=== PATIENT | male | born 1985 | race African-American/Black ===

== ENCOUNTER 2016-10-02 03:03 | Emergency (ER) | payer MEDICAID ==
[~2016-10-02] VITALS: Ht 185.4 cm; Wt 77.1 kg
[2016-10-02] MEDS ORDERED: AMOXICILLIN500 MG ORAL (03:24)
[2016-10-02 03:38] VITALS: BP 133/74
[2016-10-02 03:39] VITALS: BP 133/74
--- NOTE | 2016-10-02 03:52 | Emergency Room Report ---
History of Present Illness General Chief Complaint: Fever Source: Patient Present Illness HPI 31-year-old male presents to ED for evaluation. Patient states the last 2 days he's had a fever. Patient went to [place] yesterday afternoon for evaluation. Has blood work and IV fluids. Patient was told he had a viral infection was discharged on ibuprofen. Patient is here because he continues to have a fever. Complaining of sore throat. Denies cough. Denies bowel pain nausea or vomiting. Denies sick contacts or recent travel. No other aggravating relieving factors. Denies any other associated symptoms Allergies: Coded Allergies: No Known Allergies (Unverified , 10/02/16) Patient History Past Medical History: none Past Surgical History: none Pertinent Family History: none Social History: Denies: alcohol use, drug use, smoking Immunizations: UTD Reviewed Nursing Documentation: PMH: Agreed, PSxH: Agreed Nursing Documentation-PMH Past Medical History: No Stated History Review of Systems All Other Systems: negative except mentioned in HPI Physical Exam Vital Signs Date Time Temp Pulse Resp B/P Pulse Ox O2 Delivery O2 Flow Rate FiO2 10/02/16 03:08 99.1 115 20 147/79 90 Room Air Sp02 EP Interpretation: reviewed, normal General Appearance: no apparent distress, alert, GCS 15, non-toxic Head: normocephalic, atraumatic Eyes: bilateral eye PERRL, bilateral eye normal inspection ENT: hearing grossly normal, no angioedema, normal voice, pharyngeal erythema, tonsillar exudate Neck: full range of motion, supple/symm/no masses Respiratory: chest non-tender, lungs clear, normal breath sounds, speaking full sentences Cardiovascular #1: regular rate, rhythm, no edema Gastrointestinal: normal inspection Rectal: deferred Genitourinary: no CVA tenderness Musculoskeletal: normal inspection Neurologic: alert, oriented x3, responsive, motor strength/tone normal, sensory intact, speech normal Psychiatric: normal inspection Skin: normal inspection Lymphatic: normal inspection Medical Decision Making Diagnostic Impression: Primary Impression: Pharyngitis Qualified Codes: J02.9 - Acute pharyngitis, unspecified ER Course Hospital Course 31-year-old male presents to ED complaining of sore throat + fever Differential diagnoses include: URI, pharyngitis, otitis media Clinical course Patient placed on stretcher. After initial history, physical exam reveals a male in no acute distress. Bilateral TM unremarkable. There is pharyngeal erythema w/ tonsillar exudates. No lymphadenopathy. Clinical findings consistent with pharyngitis. Reassurance given Diagnosis - pharyngitis Stable and discharged home with prescriptions for amoxicillin. Instructed to followup with PMD. return to ED if symptoms recur or worsen Last Vital Signs Date Time Temp Pulse Resp B/P Pulse Ox O2 Delivery O2 Flow Rate FiO2 10/02/16 03:39 99.1 88 20 133/74 95 Room Air Status: improved Disposition: HOME, SELF-CARE Condition: Stable Scripts Amoxicillin* (AMOXIL*) 500 Mg Capsule 500 MG ORAL THREE TIMES A DAY, #21 CAP Prov: KIRT CARRINGTON M.D. 10/02/16 Patient Instructions: Pharyngitis, [id number] KIRT CARRINGTON M.D. Oct 02, 2016 03:52
== END 2016-10-02 03:39 | disposition home or self-care (01) ==
LOC: EMR 03:22
DX: J02.9 Acute pharyngitis, unspecified (principal)
CPT/HCPCS: 99283

== ENCOUNTER 2016-10-17 17:10 | Emergency (ER) | payer MEDICAID ==
[~2016-10-17] VITALS: Ht 182.9 cm; Wt 77.1 kg
[~2016-10-17 17:10] MED LIST: AMOXICILLIN500 MG ORAL
[2016-10-17] MEDS ORDERED: AMOXICILLIN500 MG ORAL (18:00)
[2016-10-17] MEDS ORDERED: TESSALON PERLE100 MG ORAL (18:00)
[2016-10-17 18:04] VITALS: BP 128/72
[2016-10-17 18:13] VITALS: BP 128/72
--- NOTE | 2016-10-17 23:01 | Emergency Room Report ---
History of Present Illness General Chief Complaint: Sore Throat Source: Patient Present Illness HPI The pt is a 31 yo M presenting for sore throat and cough for the past month. The patient was seen in this ED recently for the same symptoms but he lost his prescription and was unable to take any antibiotics. Pain is described as an 8/ 10 dull ache to the back of the throat and does not radiate. Pain worse with swallowing. Produces a green to yellow sputum. He denies any other symptoms including N, V, rash, CP, SOB Allergies: Coded Allergies: No Known Allergies (Unverified , 10/02/16) Patient History Past Medical History: see triage record Pertinent Family History: none Reviewed Nursing Documentation: PMH: Agreed, PSxH: Agreed Nursing Documentation-PMH Past Medical History: No History, Except For History Of Psychiatric Problem: Yes Review of Systems All Other Systems: negative except mentioned in HPI Physical Exam Vital Signs Date Time Temp Pulse Resp B/P Pulse Ox O2 Delivery O2 Flow Rate FiO2 10/17/16 17:32 98.2 115 20 128/72 99 Room Air Sp02 EP Interpretation: reviewed, normal General Appearance: no apparent distress, alert, GCS 15, non-toxic Head: normocephalic, atraumatic Eyes: bilateral eye PERRL, bilateral eye normal inspection ENT: TMs + canals normal, uvula midline, tonsillar swelling, pharyngeal erythema Neck: full range of motion, supple/symm/no masses Respiratory: chest non-tender, lungs clear, normal breath sounds, no wheezing, speaking full sentences Cardiovascular #1: regular rate, rhythm, no edema Musculoskeletal: back normal, gait/station normal, normal range of motion, non- tender Neurologic: alert, oriented x3, responsive, motor strength/tone normal, sensory intact, normal gait, speech normal Psychiatric: judgement/insight normal, memory normal, mood/affect normal, no suicidal/homicidal ideation Skin: normal color, no rash, warm/dry, well hydrated Lymphatic: adenopathy - cervical Medical Decision Making PA Attestation Dr. Joshi is my supervising physician. Patient management was discussed with my supervising physician Diagnostic Impression: Primary Impression: Pharyngitis Qualified Codes: J02.9 - Acute pharyngitis, unspecified ER Course The pt is a 31 yo M presenting for sore throat and cough for the past month Differential diagnosis include but not limited to pharyngitis, sinusitis, AOM, bronchitis, PNA Physical exam: Afebrile. No apparent distress HEENT exam: There is bilateral tonsillar edema, erythema. Uvula midline. Moist mucous membranes. There is bilateral cervical lymphadenopathy. Lungs are clear to auscultation bilaterally Skin is warm and dry. No rash The patient will be discharged home with a prescription for amoxicillin and is given ER precautions. Patient will followup with primary care Last Vital Signs Date Time Temp Pulse Resp B/P Pulse Ox O2 Delivery O2 Flow Rate FiO2 10/17/16 18:13 98.2 20 128/72 99 Room Air 10/17/16 17:32 115 Status: improved Disposition: HOME, SELF-CARE Condition: Improved Scripts Benzonatate* (TESSALON PERLE*) 100 Mg Capsule 100 MG ORAL THREE TIMES A DAY, #15 PERLE Prov: TERESE MASTERS.AJorge 10/17/16 Amoxicillin* (AMOXIL*) 500 Mg Capsule 500 MG ORAL Q12HR, #20 CAP Prov: TERESE MASTERS 10/17/16 Referrals: NOT CHOSEN [facility]/,REFERRING (PCP) Patient Instructions: Pharyngitis, Sore Throat Additional Instructions: I discussed my findings with the patient. All questions and concerns have been answered. Treatment and medication compliance have been addressed. I advised the patient that they need to follow up with PMD in 3-5 days. Return to ED if pain remains or worsens, cough worsens or remains, you notice blood in your sputum, you notice wheezing, you experience a fever, or if needed for any reason. Patient verbalized understanding of discharge instructions. TERESE MASTERS Oct 17, 2016 23:01
== END 2016-10-17 18:14 | disposition home or self-care (01) ==
LOC: EMR 17:40
DX: J02.9 Acute pharyngitis, unspecified (principal)
CPT/HCPCS: 99284

== ENCOUNTER 2016-10-20 13:44 | Emergency (ER) | payer MEDICAID ==
[~2016-10-20] VITALS: Ht 185.4 cm; Wt 77.1 kg
[~2016-10-20 13:44] MED LIST changes: +TESSALON PERLE100 MG ORAL
[2016-10-20 14:19] VITALS: BP 129/85
[2016-10-20] MEDS ORDERED: Dexamethasone 4mg/ml vial IM ONE (14:30)
[2016-10-20 14:53] VITALS: BP 122/83
--- NOTE | 2016-10-20 15:29 | Emergency Room Report ---
History of Present Illness General Chief Complaint: Sore Throat Source: Patient Present Illness HPI The patient is a 31-year-old male who was diagnosed with pharyngitis last week and is to emergency department presenting for continued throat pain. The patient was given a prescription for antibiotics and has been taking them as prescribed. he states the symptoms have decreased but his primary doctor told him to get a shot of steroids. The patient states pain is a 7/10 dull ache to the back of the throat and does not radiate. Pain worse with swallowing. He denies any other symptoms including N, V, F, chills, SOB Allergies: Coded Allergies: No Known Allergies (Unverified , 10/02/16) Patient History Past Medical History: see triage record Pertinent Family History: none Reviewed Nursing Documentation: PMH: Agreed, PSxH: Agreed Nursing Documentation-PMH Past Medical History: No Stated History Review of Systems All Other Systems: negative except mentioned in HPI Physical Exam Vital Signs Date Time Temp Pulse Resp B/P Pulse Ox O2 Delivery O2 Flow Rate FiO2 10/20/16 14:19 97.9 0 129/85 99 Room Air 10/20/16 14:19 112 Sp02 EP Interpretation: reviewed, normal General Appearance: no apparent distress, alert, GCS 15, non-toxic Head: normocephalic, atraumatic Eyes: bilateral eye PERRL, bilateral eye normal inspection ENT: hearing grossly normal, no angioedema, normal voice, TMs + canals normal, uvula midline, tonsillar swelling, pharyngeal erythema Neck: full range of motion, supple/symm/no masses Respiratory: chest non-tender, lungs clear, normal breath sounds, speaking full sentences Cardiovascular #1: regular rate, rhythm, no edema Musculoskeletal: back normal, gait/station normal, normal range of motion, non- tender Neurologic: alert, oriented x3, responsive, motor strength/tone normal, sensory intact, speech normal Psychiatric: judgement/insight normal, memory normal, mood/affect normal, no suicidal/homicidal ideation Skin: normal color, no rash, warm/dry, well hydrated Lymphatic: adenopathy - cervical Medical Decision Making PA Attestation Dr. Joshi is my supervising physician. Patient management was discussed with my supervising physician Diagnostic Impression: Primary Impression: Pharyngitis Qualified Codes: J02.9 - Acute pharyngitis, unspecified ER Course The patient is a 31-year-old male who was diagnosed with pharyngitis last week and is to emergency department presenting for continued throat pain Differential diagnosis include but not limited to pharyngitis, sinusitis, AOM, bronchitis, PNA Physical exam: Vitals within normal limits. Afebrile. No apparent distress HEENT exam: There is bilateral tonsillar edema, erythema. Moist mucous membranes. There is bilateral cervical lymphadenopathy. Lungs are clear to auscultation bilaterally Skin is warm and dry. No rash Pt is given IM Decadron and will continue to take the medications as were prescribed at the last visit. ER precautions given. Last Vital Signs Date Time Temp Pulse Resp B/P Pulse Ox O2 Delivery O2 Flow Rate FiO2 10/20/16 14:53 102 16 122/83 99 Room Air 10/20/16 14:19 97.9 Status: improved Disposition: HOME, SELF-CARE Condition: Improved Referrals: NOT CHOSEN [facility]/MD,REFERRING (PCP) Patient Instructions: Sore Throat Additional Instructions: I discussed my findings with the patient. All questions and concerns have been answered. Treatment and medication compliance have been addressed. I advised the patient that they need to follow up with PMD in 3-5 days. Return to ED if pain remains or worsens, cough worsens or remains, you notice blood in your sputum, you notice wheezing, you experience a fever, or if needed for any reason. Patient verbalized understanding of discharge instructions. TERESE MASTERS Oct 20, 2016 15:29
== END 2016-10-20 14:53 | disposition home or self-care (01) ==
LOC: EMR 14:32
DX: J02.9 Acute pharyngitis, unspecified (principal)
CPT/HCPCS: 96372; 99283; J1100

== ENCOUNTER 2016-10-24 23:48 | Emergency (ER) | payer SELFPAY ==
[~2016-10-24] VITALS: Ht 185.4 cm; Wt 79.4 kg
[2016-10-25 00:05] VITALS: BP 135/78
[2016-10-25] MEDS ORDERED: KEFLEX500 MG ORAL (01:10)
[2016-10-25] MEDS ORDERED: BACTRIM DS TAB1 EAC1 ORAL (01:10)
[2016-10-25 01:25] VITALS: BP 137/79
[2016-10-25 01:30] VITALS: BP 135/78
--- NOTE | 2016-11-09 15:10 | Emergency Room Report ---
History of Present Illness General Chief Complaint: Skin Rash/Abscess Source: Patient Present Illness HPI 31YOM walk-in with "boil" to left upper extremity at location of injecting heroin. Tried to "pop it" yesterday without success. Denies fever/chills, pus drainage. Prior history of abscesses. Allergies: Coded Allergies: No Known Allergies (Unverified , 10/25/16) Patient History Past Medical History: none Past Surgical History: none Pertinent Family History: none Social History: Reports: drug use Nursing Documentation-PMH Past Medical History: No Stated History Review of Systems All Other Systems: negative except mentioned in HPI Physical Exam Vital Signs Date Time Temp Pulse Resp B/P Pulse Ox O2 Delivery O2 Flow Rate FiO2 10/24/16 23:56 97.3 67 16 141/88 99 Room Air Sp02 EP Interpretation: reviewed, normal General Appearance: normal inspection, well appearing, no apparent distress, alert, GCS 15, non-toxic Head: normocephalic, atraumatic Eyes: bilateral eye EOMI, bilateral eye PERRL ENT: normal ENT inspection, hearing grossly normal, normal voice Neck: normal inspection, full range of motion, supple, no bony tend Respiratory: normal inspection, lungs clear, normal breath sounds, no respiratory distress, no retraction, no wheezing Cardiovascular #1: regular rate, rhythm, no edema Gastrointestinal: normal inspection, normal bowel sounds, non tender, soft, no guarding, no hernia Genitourinary: no CVA tenderness Musculoskeletal: normal inspection, back normal, normal range of motion, Caroline' s Sign negative Neurologic: normal inspection, alert, oriented x3, responsive, flume worker III-XII nml as tested, motor strength/tone normal, speech normal Psychiatric: normal inspection, judgement/insight normal, mood/affect normal Skin: other - left upper exremity; distal to elbow there is a 3cm indurated mass with overlyig erythema at site of injection Medical Decision Making Diagnostic Impression: Primary Impression: Abscess Additional Impressions: Cellulitis Qualified Codes: L03.114 - Cellulitis of left upper limb IVDU (intravenous drug user) Drug abuse counseling and surveillance of drug abuser ER Course Left arm cellulitis/abscess High risk of MRSA given current IVDU No signs or symptoms of systemic illness warranting additional lab/imaging, management in ED or hospital Abx double-coverage for MRSA Return for worsening abscess despite Abx PMD followup as needed Advised against continued IVDU DC home Last Vital Signs Date Time Temp Pulse Resp B/P Pulse Ox O2 Delivery O2 Flow Rate FiO2 10/25/16 01:30 97.3 72 16 135/78 99 Room Air Status: improved Disposition: HOME, SELF-CARE Condition: Improved Scripts Trimethoprim/Sulfamethoxazole 160/800* (BACTRIM DS TABLET*) 1 Each Tablet 1 TAB ORAL Q12H for 7 Days, #14 TAB 0 Refills Prov: DAGMAR BACON M.D. 10/25/16 Cephalexin* (KEFLEX*) 500 Mg Capsule 500 MG ORAL Q6H for 7 Days, #28 CAP 0 Refills Prov: DAGMAR BACON M.D. 10/25/16 Referrals: NOT CHOSEN [facility]/,REFERRING (PCP) Patient Instructions: Abscess DAGMAR BACON M.D. November 09, 2016 15:10
== END 2016-10-25 01:31 | disposition home or self-care (01) ==
LOC: EMR 10-25 00:19
DX: L02.414 Cutaneous abscess of left upper limb (principal); F19.90 Other psychoactive substance use, unspecified, uncomplicated; Z71.51 Drug abuse counseling and surveillance of drug abuser
CPT/HCPCS: 99282

== ENCOUNTER 2016-12-06 08:34 | Emergency (ER) | payer SELFPAY ==
[~2016-12-06] VITALS: Ht 185.4 cm; Wt 76.2 kg
[~2016-12-06 08:34] MED LIST changes: +BACTRIM DS TAB1 EAC1 ORAL; +KEFLEX500 MG ORAL
--- NOTE | 2016-12-06 08:47 | Emergency Room Report ---
History of Present Illness General Chief Complaint: sore throat Present Illness HPI Patient is a 31-year-old male presented after increased sore throat and congestion. Patient said he recently used IV drugs. Patient was concerned that he needed antibiotics. Patient reported having some concern for infection at the location of injection.The patient denied any fever. Allergies: Coded Allergies: No Known Allergies (Unverified , 10/25/16) Patient History Past Medical History: see triage record Reviewed Nursing Documentation: PMH: Agreed, PSxH: Agreed Review of Systems All Other Systems: negative except mentioned in HPI Physical Exam General Appearance: well appearing, no apparent distress, alert, GCS 15 Head: normocephalic, atraumatic ENT: hearing grossly normal, normal voice Neck: full range of motion, supple Respiratory: no respiratory distress, speaking full sentences Cardiovascular #1: normal inspection, normal peripheral pulses, regular rate, rhythm Gastrointestinal: normal inspection Musculoskeletal: no calf tenderness Neurologic: normal gait Psychiatric: mood/affect normal Skin: other - slight erythema no fluctuance Medical Decision Making Diagnostic Impression: Primary Impression: Cellulitis ER Course Patient presented for skin rash. Differential diagnoses included was not limited to cellulitis, abscess,endocarditis, necrotizing fasciitis among others. Patient's benign exam and does not appear to require any further imaging or laboratory testing at this time. Patient given prescription for oral antibiotics . The patient was advised to discontinue drug use.The patient is advised to follow up with primary care doctor in 1-2 days. Patient is advised to return if any worsening condition or if any changes in status that are concerning. Status: improved Disposition: HOME, SELF-CARE Condition: Stable Pepe Burnett Dec 06, 2016 08:47
[2016-12-06] MEDS ORDERED: KEFLEX500 MG ORAL (08:48)
[2016-12-06 08:56] VITALS: BP 126/93
== END 2016-12-06 09:00 | disposition home or self-care (01) ==
LOC: EMR 08:46
DX: L03.90 Cellulitis, unspecified (principal); R07.0 Pain in throat
CPT/HCPCS: 99283

== ENCOUNTER 2017-01-11 11:01 | Emergency (ER) | payer SELFPAY ==
[~2017-01-11] VITALS: Ht 185.4 cm; Wt 77.1 kg
[2017-01-11 11:30] VITALS: BP 125/73
[2017-01-11 11:52] LABS: APPEARANCE,URINE CLEAR; KETONES,URINE NEGATIVE (NEGATIVE); LEUKOCYTE ESTERASE ,URINE 2+ (NEGATIVE); NITRITE,URINE NEGATIVE (NEGATIVE); PH,URINE 6.5 (4.5-8.0); PROTEIN,URINE 1+ (NEGATIVE); UROBILINOGEN,URINE NORMAL MG/DL (0.0-1.0)
[2017-01-11 12:00] LABS: BACTERIA,URINE FEW /HPF; RBC,URINE 0-2 /HPF (0 - 0); SQUAMOUS EPITHELIAL CELL,UR FEW /LPF (NONE/OCC)
--- NOTE | 2017-01-11 12:22 | Emergency Room Report ---
History of Present Illness General Chief Complaint: Male Urogenital Problems Source: Patient Present Illness HPI Patient presents with dysuria for several days. Has recurrent UTIs which [facility] have treated in the past with amox with effectiveness. He states other antibiotics not effective. Also has some redness of eyes with beige/green crust yesterday. Denies fever. States practices safe sex. Doubts STD. No fevers, sore throat, NVD, joint pain, rashes. Denies HIV. Allergies: Coded Allergies: No Known Allergies (Unverified , 10/25/16) Patient History Past Medical History: see triage record Social History: Reports: smoking Social History Narrative alleges unemployed Reviewed Nursing Documentation: PMH: Agreed, PSxH: Agreed Nursing Documentation-PMH Hx Asthma: Yes Review of Systems All Other Systems: negative except mentioned in HPI Physical Exam Vital Signs Date Time Temp Pulse Resp B/P Pulse Ox O2 Delivery O2 Flow Rate FiO2 01/11/17 11:13 98.1 98 20 125/73 99 Room Air Sp02 EP Interpretation: reviewed, normal General Appearance: well appearing, no apparent distress Head: normocephalic, atraumatic Eyes: bilateral eye PERRL, bilateral eye Scleral Injection - worse on L with conjunctival inflammation ENT: hearing grossly normal, normal pharynx, normal voice Neck: full range of motion, supple Respiratory: no respiratory distress, speaking full sentences Gastrointestinal: normal inspection, scaphoid Genitourinary: no CVA tenderness Musculoskeletal: no calf tenderness Neurologic: alert, normal gait, grossly normal Psychiatric: mood/affect normal Skin: no rash Medical Decision Making Diagnostic Impression: Primary Impression: UTI (urinary tract infection) Qualified Codes: N30.00 - Acute cystitis without hematuria Additional Impression: Acute bacterial conjunctivitis Qualified Codes: H10.33 - Unspecified acute conjunctivitis, bilateral ER Course Patient with dysuria and redness of eyes. Ddx; STD, UTI, conjunctivitis amongst others. UA sent. Pyuria. Insists on amox. Also treated for conjunctivitis. Patient stable for outpatient observation and treatment. Laboratory Tests Test 01/11/17 11:47 Urine Color Yellow Urine Appearance Clear Urine pH 6.5 (4.5-8.0) Urine Specific [place] 1.015 (1.005-1.035) Urine Protein 1+ (NEGATIVE) H Urine Glucose (UA) Negative (NEGATIVE) Urine Ketones Negative (NEGATIVE) Urine Occult Blood Negative (NEGATIVE) Urine Nitrite Negative (NEGATIVE) Urine Bilirubin Negative (NEGATIVE) Urine Urobilinogen Normal MG/DL (0.0-1.0) Urine Leukocyte Esterase 2+ (NEGATIVE) H Urine RBC 0-2 /HPF (0 - 0) H Urine WBC 5-10 /HPF (0 - 0) H Urine Squamous Epithelial Cells Few /LPF (NONE/OCC) Urine Bacteria Few /HPF (NONE) Last Vital Signs Date Time Temp Pulse Resp B/P Pulse Ox O2 Delivery O2 Flow Rate FiO2 01/11/17 12:34 98.1 20 125/73 99 Room Air 01/11/17 11:13 98 Status: improved Disposition: HOME, SELF-CARE Condition: Improved Scripts Sulfacetamide Sodium (BLEPH-10) 5 Ml Drops 2 DROP OP Q6HR, #10 ML Prov: Ramón Irby M.D. 01/11/17 Amoxicillin* (AMOXIL*) 500 Mg Capsule 500 MG ORAL THREE TIMES A DAY, #21 CAP Prov: Ramón Irby M.D. 01/11/17 Referrals: NOT CHOSEN [facility]/,REFERRING (PCP) Ramón Irby M.D. Jan 11, 2017 12:22
[2017-01-11] MEDS ORDERED: AMOXICILLIN500 MG ORAL (12:26)
[2017-01-11] MEDS ORDERED: BLEPH-105 ML OP (12:26)
[2017-01-11 12:34] VITALS: BP 125/73
== END 2017-01-11 12:34 | disposition home or self-care (01) ==
LOC: EMR 12:10
DX: N39.0 Urinary tract infection, site not specified (principal); H10.33 Unspecified acute conjunctivitis, bilateral; J45.909 Unspecified asthma, uncomplicated; F17.200 Nicotine dependence, unspecified, uncomplicated
CPT/HCPCS: 81003; 99284